=== PATIENT | male | born 1945 | race Caucasian/White ===

== ENCOUNTER 2016-08-23 08:12 | Emergency (ER) | payer MEDICARE, BC ==
[~2016-08-23 08:12] MED LIST: Lidocaine 1% 20 ML MDV INFILT ONE
[2016-08-23 08:50] VITALS: BP 131/72
--- NOTE | 2016-08-23 09:17 | EDM.PDOC ---
ED HPI GENERAL MEDICAL PROBLEM - General Chief Complaint: Head Injury Stated Complaint: FALL Time Seen by Provider: 08/23/16 08:41 Source of Information: Reports: Patient, EMS, EMS Notes Reviewed History Limitations: Reports: Physical Impairment - History of Present Illness INITIAL COMMENTS - FREE TEXT/NARRATIVE: 70 years old w m with a h/o HTN, CHF, COPD and a fib (not on coumdine), came to the ed after he came out of the bathroom, turned, became dizzy and fell. No LOC. Pt came to the ed by EMS. on arrival BP was 133/87 pulse 103, no C/P. Pt has COPD and is on a prednisone Taper. Pt denies any other acute medical issue. Onset: Today Onset Date: 08/23/16 Onset Time: 07:00 Duration: Hour(s):, Resolved Prior to Arrival Location: Reports: Head Quality: Reports: Burning Severity: Mild Improves with: Reports: None Worsens with: Reports: None Context: Reports: Trauma Associated Symptoms: Reports: Shortness of Breath (COPD) - Related Data Allergies Allergy/AdvReac Type Severity Reaction Status Date / Time warfarin sodium Allergy Itching Verified 08/23/16 08:39 [From Coumadin] Home Meds: Home Meds Cholecalciferol (Vitamin D3) [Vitamin D3] 2,000 unit PO DAILY 04/24/13 [History] FLUoxetine [PROzac] 40 mg PO DAILY 04/24/13 [History] Metoprolol Succinate [Toprol Xl] 100 mg PO DAILY 04/24/13 [History] Multivitamin [Multivitamins] 1 cap PO DAILY 04/24/13 [History] PEG 400/Propylene Glycol [Systane Lubricant] 1 drop EYEBOTH QID PRN 04/24/13 [ History] Simvastatin 40 tab PO BEDTIME 04/24/13 [History] amLODIPine [Norvasc] 10 mg PO DAILY 04/24/13 [History] Triamcinolone Acetonide [Kenalog 0.1% Crm] 1 applic TOP BID PRN 08/18/14 [ History] Metolazone [Zaroxolyn] 2.5 mg PO TuSa@0800 #10 tablet 06/06/15 [Rx] Apixaban [Eliquis] 5 mg PO BID 08/23/16 [History] Furosemide [Lasix] 80 mg PO DAILY 08/23/16 [History] Levofloxacin [IJP: Levofloxacin] 500 mg PO DAILY #10 tab 08/23/16 [Rx] Losartan [Cozaar] 50 mg PO DAILY 08/23/16 [History] predniSONE [Prednisone] 40 mg PO DAILY 08/23/16 [History] Past Medical History - Past Health History Medical/Surgical History: Denies Medical/Surgical History HEENT History: Reports: Cataract, Other (See Below) Other HEENT History: astigmatism,presbyopia, hyperopia Cardiovascular History: Reports: Afib, Heart Failure, High Cholesterol, Hypertension Respiratory History: Reports: Asthma, COPD Gastrointestinal History: Reports: GERD Genitourinary History: Reports: Prostate Disorder, Renal Calculus, Renal Disease , Other (See Below) Other Genitourinary History: hematuria, hydrocele Psychiatric History: Reports: Depression Endocrine/Metabolic History: Reports: Obesity/BMI 30+, Other (See Below) Other Endocrine/Metabolic History: hyperhydrosis - Past Surgical History HEENT Surgical History: Reports: Cataract Surgery, Tonsillectomy GI Surgical History: Reports: Appendectomy Social & Family History - Family History Respiratory: Reports: COPD Psychiatric: Reports: Depression - Tobacco Use Smoking Status *Q: Former Smoker Years of Tobacco use: 40 Used Tobacco, but Quit: Yes Month Tobacco Last Used: quiet 7 years ago Second Hand Smoke Exposure: Yes - Alcohol Use Days Per Week of Alcohol Use: 0 - Recreational Drug Use Recreational Drug Use: No ED ROS GENERAL - Review of Systems Review Of Systems: See Below Constitutional: Reports: No Symptoms HEENT: Reports: Other (LACERATIN Mid forehead) Respiratory: Reports: Shortness of Breath Cardiovascular: Reports: Dyspnea on Exertion Endocrine: Reports: No Symptoms GI/Abdominal: Reports: No Symptoms : Reports: No Symptoms Musculoskeletal: Reports: Other (PVD) Skin: Reports: Wound (mid forehead) Neurological: Reports: No Symptoms Psychiatric: Reports: No Symptoms Hematologic/Lymphatic: Reports: No Symptoms Immunologic: Reports: No Symptoms ED EXAM, HEAD INJURY - Physical Exam Exam: See Below Exam Limited By: Physical Impairment General Appearance: Alert, WD/WN, Mild Distress, Obese Head: Atraumatic, Normocephalic Eyes: Bilateral Eye: Normal Inspection Ears: Normal External Exam Nose: Normal Inspection, Normal Mucousa, No Blood Throat/Mouth: Normal Inspection, Normal Lips Neck: Non-Tender, Full Range of Motion, Normal Alignment, Normal Inspection Respiratory: Decreased Breath Sounds (COPD) Cardiovascular: Tachycardia GI/Abdominal Exam (Abbreviated): Normal Bowel Sounds, Soft (Male) Exam: Deferred Rectal (Males) Exam: Deferred Back Exam: Normal Inspection, Full Range of Motion Extremities: Other (PVD) 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: 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 nml As Tested, Alert, Normal Mood/Affect, Oriented x 3, Abnormal Cerebellar Tests Skin: Ecchymosis (lower legs, old), Rash (abrasions both lower legs, old) - [place] Coma Score Best Eye Response ([place]): (4) Open Spontaneously Best Verbal Response (Lauren): (5) Oriented Best Motor Response (Lauren): (6) Obeys Commands [place] Total: 15 ED LACERATION/WOUND & AIMEE PROC - Laceration/Wound Repair Upper Anterior Midline Head Lac/wound length in cm: 7 Appearance: Subcutaneous, Linear, Clean Distal NVT: Neuro & Vascular Intact, No Tendon Injury Anesthetic Type: Local Local Anesthesia - Lidocaine (Xylocaine): 1% Plain Local Anesthetic Volume: 5cc Skin Prep: Providone-Iodine (Betadine) Saline irrigation (cc's): 20 Exploration/Debridement/Repair: Wound Explored, in a Bloodless Field, Explored to Base Closed with: Jose # of Sutures: 16 Suture Type: Interrupted, Other (ethilon) Suture Size: 4-0 # of Sutures: 3 Tetanus Status Addressed: Other (UTD) Complications: No EKG INTERPRETATION EKG Date: 08/23/16 Time: 09:20 Rhythm: a-fib Rate (beats/min): 104 [place]: normal P-wave: absent QRS: normal ST-T: normal QT: normal Comparison: NA - no prior EKG Course - Vital Signs Text/Narrative:: 70 years old w m with a h/o HTN, CHF, COPD and a fib (not on coumdine), came to the ed after he came out of the bathroom, turned, became dizzy and fell. No LOC. Pt came to the ed by EMS. on arrival BP was 133/87 pulse 103, no C/P. Pt has COPD and is on a prednisone Taper. Pt denies any other acute medical issue. PE: WN, weak appearing WM, NAD, vertical laceration mid forehead measuring 7 cm in length Last Recorded V/S: Last Vital Signs Temp 36.9 C 05/31/17 08:41 Pulse 107 H 08/23/16 10:43 Resp 13 08/23/16 08:41 BP 131/72 08/23/16 08:41 Pulse Ox 98 08/23/16 10:43 Orthostatic Blood Pressure [ 91/62 Standing] Orthostatic Blood Pressure [ 109/84 Sitting] Orthostatic Blood Pressure [ 121/76 Supine] - Orders/Labs/Meds Labs: Laboratory Tests 08/23/16 08/23/16 08/23/16 Range/Units 09:35 09:35 09:35 WBC 18.0 H (4.5-12.0) X10-3/uL RBC 4.54 (4.30-5.75) x10(6)uL Hgb 13.9 (11.5-15.5) g/dL Hct 42.8 (30.0-51.3) % MCV 94.1 (80-96) fL MCH 30.6 (27.7-33.6) pg MCHC 32.6 (32.2-35.4) g/dL RDW 15.4 (11.5-15.5) % Plt Count 255 (125-369) X10(3)uL MPV 8.4 (7.4-10.4) fL Add Manual Diff Yes Neutrophils % (Manual) 87 H (46-82) % Lymphocytes % (Manual) 7 L (13-37) % Monocytes % (Manual) 6 (4-12) % PT 12.0 H (8.7-11.1) INR 1.19 H (0.89-1.13) Sodium 135 (135-145) mmol/L Potassium 4.9 (3.5-5.3) mmol/L Chloride 99 L D (100-110) mmol/L Carbon Dioxide 26 (23-29) mmol/L BUN 42 H (8-23) mg/dL Creatinine 1.3 (0.6-1.3) mg/dL Est Cr Clr Drug Dosing 65.68 mL/min Estimated GFR (MDRD) 54 L (>60) BUN/Creatinine Ratio 32.3 H (9-20) Glucose 112 (80-116) mg/dL Lactic Acid (0.5-2.2) mmol/L Calcium 9.1 (8.6-10.2) mg/dL Creatine Kinase 23 L (60-160) IU/L Troponin I (0.02-0.06) NG/ML B-Natriuretic Peptide (0-100) pg/mL Urine Color (YELLOW) Urine Appearance (CLEAR) Urine pH (5.0-6.5) Ur Specific [place] (1.010-1.025) Urine Protein (NEGATIVE) mg/dL Urine Glucose (UA) (NEGATIVE) mg/dL Urine Ketones (NEGATIVE) mg/dL Urine Occult Blood (NEGATIVE) Urine Nitrite (NEGATIVE) Urine Bilirubin (NEGATIVE) Urine Urobilinogen (NEGATIVE) mg/dL Ur Leukocyte Esterase (NEGATIVE) Urine WBC (0) Ur Squamous Epith Cells (NS,R,O) Urine Bacteria (NS) Hyaline Casts (NS) 08/23/16 08/23/16 08/23/16 Range/Units 09:35 09:35 10:38 WBC (4.5-12.0) X10-3/uL RBC (4.30-5.75) x10(6)uL Hgb (11.5-15.5) g/dL Hct (30.0-51.3) % MCV (80-96) fL MCH (27.7-33.6) pg MCHC (32.2-35.4) g/dL RDW (11.5-15.5) % Plt Count (125-369) X10(3)uL MPV (7.4-10.4) fL Add Manual Diff Neutrophils % (Manual) (46-82) % Lymphocytes % (Manual) (13-37) % Monocytes % (Manual) (4-12) % PT (8.7-11.1) INR (0.89-1.13) Sodium (135-145) mmol/L Potassium (3.5-5.3) mmol/L Chloride (100-110) mmol/L Carbon Dioxide (23-29) mmol/L BUN (8-23) mg/dL Creatinine (0.6-1.3) mg/dL Est Cr Clr Drug Dosing mL/min Estimated GFR (MDRD) (>60) BUN/Creatinine Ratio (9-20) Glucose (80-116) mg/dL Lactic Acid (0.5-2.2) mmol/L Calcium (8.6-10.2) mg/dL Creatine Kinase (60-160) IU/L Troponin I 0.03 (0.02-0.06) NG/ML B-Natriuretic Peptide 146 H (0-100) pg/mL Urine Color Yellow (YELLOW) Urine Appearance Slightly cloudy (CLEAR) Urine pH 5.0 (5.0-6.5) Ur Specific [place] 1.025 (1.010-1.025) Urine Protein 30 H (NEGATIVE) mg/dL Urine Glucose (UA) Normal (NEGATIVE) mg/dL Urine Ketones Negative (NEGATIVE) mg/dL Urine Occult Blood Negative (NEGATIVE) Urine Nitrite Negative (NEGATIVE) Urine Bilirubin Negative (NEGATIVE) Urine Urobilinogen 1 H (NEGATIVE) mg/dL Ur Leukocyte Esterase Negative (NEGATIVE) Urine WBC 0-5 (0) Ur Squamous Epith Cells Few H (NS,R,O) Urine Bacteria Moderate H (NS) Hyaline Casts Few H (NS) 08/23/16 Range/Units 10:50 WBC (4.5-12.0) X10-3/uL RBC (4.30-5.75) x10(6)uL Hgb (11.5-15.5) g/dL Hct (30.0-51.3) % MCV (80-96) fL MCH (27.7-33.6) pg MCHC (32.2-35.4) g/dL RDW (11.5-15.5) % Plt Count (125-369) X10(3)uL MPV (7.4-10.4) fL Add Manual Diff Neutrophils % (Manual) (46-82) % Lymphocytes % (Manual) (13-37) % Monocytes % (Manual) (4-12) % PT (8.7-11.1) INR (0.89-1.13) Sodium (135-145) mmol/L Potassium (3.5-5.3) mmol/L Chloride (100-110) mmol/L Carbon Dioxide (23-29) mmol/L BUN (8-23) mg/dL Creatinine (0.6-1.3) mg/dL Est Cr Clr Drug Dosing mL/min Estimated GFR (MDRD) (>60) BUN/Creatinine Ratio (9-20) Glucose (80-116) mg/dL Lactic Acid 2.8 H (0.5-2.2) mmol/L Calcium (8.6-10.2) mg/dL Creatine Kinase (60-160) IU/L Troponin I (0.02-0.06) NG/ML B-Natriuretic Peptide (0-100) pg/mL Urine Color (YELLOW) Urine Appearance (CLEAR) Urine pH (5.0-6.5) Ur Specific [place] (1.010-1.025) Urine Protein (NEGATIVE) mg/dL Urine Glucose (UA) (NEGATIVE) mg/dL Urine Ketones (NEGATIVE) mg/dL Urine Occult Blood (NEGATIVE) Urine Nitrite (NEGATIVE) Urine Bilirubin (NEGATIVE) Urine Urobilinogen (NEGATIVE) mg/dL Ur Leukocyte Esterase (NEGATIVE) Urine WBC (0) Ur Squamous Epith Cells (NS,R,O) Urine Bacteria (NS) Hyaline Casts (NS) Meds: Medications Discontinued Medications Generic Name Dose Route Start Last Admin Trade Name Freq PRN Reason Stop Dose Admin Albuterol/Ipratropium 3 ml 08/23/16 10:35 08/23/16 10:43 Duoneb 3.0-0.5 Mg/3 Ml NEB 08/23/16 10:36 3 ml ONETIME ONE Administration Levofloxacin/Dextrose 500 mg/ 100 mls @ 100 mls/hr 08/23/16 11:20 08/23/16 11 :35 Premix IV 08/23/16 12:19 100 mls/hr ONETIME ONE Administration Sodium Chloride 250 mls @ 100 mls/hr 08/23/16 11:45 08/23/16 11:40 Normal Saline IV 100 mls/hr ASDIRECTED BRO Administration Lidocaine HCl 5 ml 08/23/16 08:12 Xylocaine 1% INFILT 08/23/16 08:13 .STK-MED ONE Methylprednisolone Sodium Succinate 125 mg 08/23/16 11:52 08/23/16 12:15 Solu-Medrol IVPUSH 08/23/16 11:53 125 mg ONETIME ONE Administration Departure - Departure Time of Disposition: 12:59 Disposition: Home, Self-Care 01 Condition: good Clinical Impression: Laceration, Dehydration Fall Qualifiers: Encounter type: initial encounter Qualified Code(s): W19.XXXA - Unspecified fall, initial encounter COPD (chronic obstructive pulmonary disease) Qualifiers: COPD type: emphysema Pneumonia Qualifiers: Pneumonia type: due to unspecified organism Laterality: left Lung location: upper lobe of lung Qualified Code(s): J18.1 - Lobar pneumonia, unspecified organism - Discharge Information Prescriptions: Levofloxacin [IJP: Levofloxacin] 500 mg PO DAILY #10 tab Instructions: Fall Prevention in the Home, [id number] Referrals: Hong Husain MD [Primary Care Provider] - Forms: ED Department Discharge Additional Instructions: Please con your inhalers and prednison at home, Wound checkin 2 days, Abx as recommended, please come back if your symptoms get worse acutely.
[2016-08-23] MEDS ORDERED: Albuterol/Ipratropium 3.0-0.5 MG/3 ML Neb Soln NEB ONE (10:35)
[2016-08-23] MEDS ORDERED: Levofloxacin/Dextrose 5%-Water 500 MG in Premix Bag 1 BAG IV ONE (11:20)
--- NOTE | 2016-08-23 11:29 | CT ---
INDICATION: Hit head on dresser - trauma. CT HEAD WITHOUT CONTRAST: Serial contiguous 2.5 and 5-mm sections were obtained through the brain without contrast, 08/23/2016. No comparisons were available. Total Exam DLP = 949.36 mGy-cm. Soft tissue swelling - scalp hematoma is noted at the left frontal bone. No underlying cranial fracture site or other definite cranial abnormality was identified. Skin sutures are noted in place. Visualized paranasal sinuses and mastoid air cells appear to be well aerated. Calcification is noted in the internal carotid arteries. Frontal cortical atrophy is noted. No shift of midline structures or ventricular abnormalities were suggested. No definite abnormal areas of density were seen. No bleeding site or hematoma was identified. IMPRESSION: 1. No acute intracranial abnormality. 2. Cerebrovascular disease with arterial calcifications noted. 3. Frontal cortical atrophy with a milder degree of temporal atrophy. 4. Scalp hematoma with laceration and skin herbert. [facility]
--- NOTE | 2016-08-23 11:31 | CT ---
INDICATION: Hit head on dresser - trauma, on Coumadin. CT CERVICAL SPINE WITHOUT CONTRAST: Spiral 2.5-mm axial sections were obtained through the cervical spine with sagittal and coronal reconstructions, 2016. No comparisons were available. Hypertrophic degenerative changes and mild narrowing are noted with sclerosis at the atlantoodontoid interval. Hypertrophic degenerative changes and sclerosis with subchondral cystic changes are noted at the C5-6 level and to a much lesser extent at C6-7, as far as the sclerosis and hypertrophic changes go, but with narrowing of that disk space also seen. There is also narrowing of the C7-T1 level, with a grade 1 anterolisthesis at C7-T1. An acute process is not strongly suggested, as the prevertebral space appears to be normal. A definite acute fracture site or dislocation of an acute nature is not identified. Narrowing of the neural foramen on the left and to a lesser extent on the right is noted at C5-6. Mild hypertrophic degenerative changes for the most part are noted at the lateral masses, more prominently at the C5-6 level. Degenerative changes at the uncinate joints are most prominent at that level and also on the left at C6-7. IMPRESSION: 1. No definite acute fracture or dislocation. However, there is a grade 1 anterolisthesis at C7-T1 which most likely is degenerative in nature. This should be correlated clinically, as an acute process is difficult to entirely exclude. Soft tissue swelling is not present to support an acute process at that level. 2. Degenerative changes and disk disease most prominently at C5-6 and also at C6-7, C7-T1. 2. Degenerative changes atlantoodontoid joint. Report was called to Dr. Hernandez at 1022 hours, 08/23/2016. Total Exam DLP = 575.62 mGy-cm. MTDD
[2016-08-23] MEDS ORDERED: Sodium Chloride 0.9% 250 ML IV SCH (11:45)
--- NOTE | 2016-08-23 11:51 | CR ---
INDICATION: Elevated white blood count. CHEST: AP and lateral views of the chest were obtained with two lateral views, 08/23/2016, and compared with 06/04/2015. The heart is enlarged in general. The aorta is tortuous with calcification in the arch and descending portion. Overlying EKG leads are noted. Heavy markings are noted in the right upper middle lung field, likely atelectatic in nature - subsegmental. Flattening of diaphragm leaves is more prominent than on the previous study, compatible with progressive COPD and/or exacerbation of COPD. Heart size appears similar or perhaps slightly increased in size compared with the previous study. No definite consolidating pneumonia or effusion was seen. IMPRESSION: 1. Linear densities anteriorly - anterobasal right upper lobe - may represent subsegmental atelectasis, although some minimal pneumonia could be present in that area. However, no significant pleural effusion was seen. 2. Progressive and/or exacerbated COPD. 3. ASHD with cardiomegaly. 4. DJD lower middle thoracic spine. Report was called to Dr. Hernandez at 1120 hours, 08/23/2016. [facility]
[2016-08-23] MEDS ORDERED: methylPREDNISolone Sodium Succinate 125 MG/2 ML SDV IVPUSH ONE (11:52)
== END 2016-08-23 13:20 | disposition home or self-care (01) ==
LOC: FB.ED 08:12
DX: S01.91XA Laceration without foreign body of unspecified part of head, initial encounter (principal); J18.9 Pneumonia, unspecified organism; E86.0 Dehydration; Z88.8 Allergy status to other drugs, medicaments and biological substances; Z79.899 Other long term (current) drug therapy; I11.0 Hypertensive heart disease with heart failure; I50.9 Heart failure, unspecified; Z90.49 Acquired absence of other specified parts of digestive tract; Z98.49 Cataract extraction status, unspecified eye; J45.909 Unspecified asthma, uncomplicated; I48.91 Unspecified atrial fibrillation; K21.9 Gastro-esophageal reflux disease without esophagitis; F32.9 Major depressive disorder, single episode, unspecified; F41.8 Other specified anxiety disorders; Z98.890 Other specified postprocedural states; Z87.891 Personal history of nicotine dependence; E78.00 Pure hypercholesterolemia, unspecified; J44.9 Chronic obstructive pulmonary disease, unspecified; W19.XXXA Unspecified fall, initial encounter; E66.9 Obesity, unspecified; Z68.32 Body mass index [BMI] 32.0-32.9, adult
CPT/HCPCS: 12014; 36415; 70450; 71020; 72125; 80048; 81001; 82550; 83605; 83880; 84484; 85025; 85610; 87040; 93005; 94664; 96361; 96365; 96375; 99284; 99285; A4217; J1956; J2930; J7050; J7620; 12002; 12032